=== PATIENT | male | born 1990 | race Hispanic/Latino ===

== ENCOUNTER 2023-01-26 02:10 | Emergency (ER) | payer OTHER ==
[~2023-01-26] VITALS: Ht 175.3 cm; Wt 90.7 kg
[2023-01-26 02:12] VITALS: BP 138/82
[2023-01-26] MEDS ORDERED: FAMO-136 PO (09:56)
== END 2023-01-26 04:50 | disposition left against medical advice (07) ==
LOC: EDH 02:10
DX: R10.13 Epigastric pain (principal); Z53.21 Procedure and treatment not carried out due to patient leaving prior to being seen by health care provider
CPT/HCPCS: 99281

== ENCOUNTER 2023-01-26 05:24 | Emergency (ER) | payer OTHER ==
[~2023-01-26] VITALS: Ht 175.3 cm; Wt 90.7 kg
[2023-01-26] MEDS ORDERED: MAG/ALUM/SIMETH 30 ML UDCUP ONE (06:14)
[2023-01-26] MEDS ORDERED: DICYCLOMINE HCL 10 MG/5 ML ML PO ONE (06:15)
[2023-01-26] MEDS ORDERED: DICYCLOMINE HCL 10 MG/5 ML ML PO SCH (06:30)
[2023-01-26] MEDS ORDERED: MAG/ALUM/SIMETH 30 ML UDCUP PO ONE (06:30)
[2023-01-26] MEDS ORDERED: LIDOCAINE HCL 2% VISCOUS 15 ML UDCUP PO ONE (06:30)
[2023-01-26 07:02] LABS: BASOPHILS % (AUTO) 0.1 % (0.0-5.0); HEMATOCRIT 43.9 % (42-54); LYMPHOCYTES % (AUTO) 4.6 % (21.0-51.0); MEAN CORPUSCULAR HGB CONC 35.8 g/dL (32.0-36.0); MEAN CORPUSCULAR VOLUME 83.9 fL (79-99); MONOCYTES % (AUTO) 4.2 % (3.0-13.0); NEUTROPHILS % (AUTO) 90.8 % (40.0-77.0); PLATELET COUNT (AUTO) 228 K/uL (130-400); RED BLOOD CELL COUNT(AUTO) 5.23 MIL/uL (4.50-6.20); RED CELL DISTRIBUTION WIDTH 12.4 % (11.0-15.5); WHITE BLOOD COUNT (AUTO) 17.6 K/uL (4.8-10.8)
[2023-01-26 08:04] LABS: ALBUMIN 4.2 g/dL (3.5-5.0); POTASSIUM 4.1 mmol/L (3.5-5.1); TOTAL PROTEIN, SERUM 7.7 g/dL (6.0-8.3)
[2023-01-26 08:06] LABS: APPEARANCE,URINE CLEAR (CLEAR); BILIRUBIN,URINE NEGATIVE (NEGATIVE); COLOR,URINE YELLOW (YELLOW); GLUCOSE, URINE (UA) NEGATIVE (NEGATIVE); KETONES,URINE 20 mg/dL (NEGATIVE); LEUKOCYTE ESTERASE ,URINE NEGATIVE Leu/uL (NEGATIVE); NITRATE,URINE NEGATIVE (NEGATIVE); OCCULT BLOOD,URINE NEGATIVE (NEGATIVE); PH,URINE 7.5 (5.0-8.0); PROTEIN,URINE 20 mg/dL (NEGATIVE)
[2023-01-26 08:20] LABS: MUCUS,URINE FEW LPF (None Seen)
[2023-01-26 08:58] LABS: AMPHET/METH SCREEN,URINE NEGATIVE (NEGATIVE); BARBITURATE SCREEN, URINE NEGATIVE (NEGATIVE); BENZODIAZEPINES SCREEN,URINE NEGATIVE (NEGATIVE); CANNABINOID SCREEN,URINE NEGATIVE (NEGATIVE); COCAINE SCREEN,URINE NEGATIVE (NEGATIVE); OPIATE SCREEN,URINE NEGATIVE (NEGATIVE); PHENCYCLIDINE SCREEN,URINE NEGATIVE (NEGATIVE)
[2023-01-26 09:44] VITALS: BP 131/81
[2023-01-26] MEDS ORDERED: FAMO-136 PO (09:56)
[2023-01-26] MEDS ORDERED: MORPHINE 2 MG SYG IVP ONE (10:00)
[2023-01-26] MEDS ORDERED: ONDANSETRON 4MG INJ IVP ONE (10:00)
[2023-01-26] MEDS ORDERED: KETOROLAC 30MG VIAL (30MG/ML) ONE (10:24)
[2023-01-26] MEDS ORDERED: KETOROLAC 30MG VIAL (30MG/ML) IVP ONE (10:30)
== END 2023-01-26 11:08 | disposition home or self-care (01) ==
LOC: EDH 05:24
DX: R10.13 Epigastric pain (principal)
CPT/HCPCS: 99285; 96374; 76705; 96375; 80053; 80305; 83690; 85025; 36415; 81001; J2405; J1885

== ENCOUNTER 2023-01-27 18:18 | Inpatient (IN) | payer OTHER ==
[~2023-01-27] VITALS: Ht 175.3 cm; Wt 90.5 kg
[~2023-01-27 18:18] MED LIST: FAMO-136 PO
[2023-01-27] MEDS ORDERED: DICYCLOMINE 20MG (10MG/ML) AMP IM STA (19:25)
[2023-01-27] MEDS ORDERED: KETOROLAC 60 MG VIAL (30MG/ML) IM ONE (19:30)
[2023-01-27] MEDS ORDERED: ONDANSETRON 4MG TABLET PO ONE (19:30)
[2023-01-27 20:01] LABS: BASOPHILS % (AUTO) 0.2 % (0.0-5.0); EOSINOPHILS % (AUTO) 0.6 % (0.0-8.0); HEMATOCRIT 45.6 % (42-54); LYMPHOCYTES % (AUTO) 11.5 % (21.0-51.0); MEAN CORPUSCULAR HEMOGLOBIN 30.2 pg (27.0-33.0); MEAN CORPUSCULAR HGB CONC 35.1 g/dL (32.0-36.0); MONOCYTES % (AUTO) 12.3 % (3.0-13.0); PLATELET COUNT (AUTO) 205 K/uL (130-400); RED CELL DISTRIBUTION WIDTH 12.3 % (11.0-15.5); WHITE BLOOD COUNT (AUTO) 13.8 K/uL (4.8-10.8)
[2023-01-27] MEDS: PANTOPRAZOLE 40 MG TAB DR PO SCH (20:02)
[2023-01-27 20:11] LABS: CREATININE 1.1 mg/dL (0.5-1.5)
[2023-01-27 20:16] LABS: ALBUMIN 3.8 g/dL (3.5-5.0); TOTAL PROTEIN, SERUM 7.9 g/dL (6.0-8.3)
[2023-01-27] MEDS ORDERED: ZOSYN 3.375GM +NS 50ML IVPB ONE (22:30)
[2023-01-27] MEDS ORDERED: 0.9%NACL 1000ML 1,000 ML IV ONE (22:30)
[2023-01-27] MEDS ORDERED: ACETAMINOPHEN 325 MG TAB PO PRN ×2 (23:00)
[2023-01-27] MEDS ORDERED: MORPHINE 2 MG SYG IV PRN (23:00)
[2023-01-27] MEDS ORDERED: ONDANSETRON 4MG INJ IV PRN (23:00)
[2023-01-27] MEDS ORDERED: MORPHINE 4 MG SYG IV PRN (23:00)
[2023-01-28] MEDS: LACTATED RINGERS 1000ML 1,000 ML IV SCH ×2 (00:30→11:20)
[2023-01-28 02:05] VITALS: BP 131/89
[2023-01-28 05:11] LABS: BASOPHILS % (AUTO) 0.3 % (0.0-5.0); EOSINOPHILS % (AUTO) 0.7 % (0.0-8.0); HEMATOCRIT 41.8 % (42-54); LYMPHOCYTES % (AUTO) 13.5 % (21.0-51.0); MEAN CORPUSCULAR HEMOGLOBIN 31.4 pg (27.0-33.0); MEAN CORPUSCULAR HGB CONC 36.6 g/dL (32.0-36.0); MEAN CORPUSCULAR VOLUME 85.7 fL (79-99); MONOCYTES % (AUTO) 10.4 % (3.0-13.0); NEUTROPHILS % (AUTO) 74.7 % (40.0-77.0); PLATELET COUNT (AUTO) 206 K/uL (130-400); RED BLOOD CELL COUNT(AUTO) 4.88 MIL/uL (4.50-6.20); RED CELL DISTRIBUTION WIDTH 12.3 % (11.0-15.5); WHITE BLOOD COUNT (AUTO) 11.8 K/uL (4.8-10.8)
[2023-01-28 05:13] LABS: MAGNESIUM 1.9 mg/dL (1.80-2.40); PHOSPHORUS 2.9 mg/dL (2.5-4.9); POTASSIUM 3.9 mmol/L (3.5-5.1)
[2023-01-28 05:14] LABS: PROTHROMBIN TIME 10.9 SEC (9.6-11.6)
[2023-01-28 05:15] LABS: PARTIAL THROMBOPLASTIN TIME 29.1 SEC (26.3-35.5)
[2023-01-28 08:00] VITALS: BP 114/70
[2023-01-28] MEDS: FAMOTIDINE 20MG VIAL IV SCH ×2 (08:34→20:13)
[2023-01-28] MEDS: ENOXAPARIN SODIUM 40 MG/0.4 ML SYRINGE SQ SCH (08:38)
[2023-01-28] MEDS ORDERED: 0.9%NACL 50ML IV SCH (11:00)
[2023-01-28] MEDS: ZOSYN 3.375GM +NS 50ML IVPB SCH ×2 (11:15→19:00)
[2023-01-28] MEDS ORDERED: GADOTERATE MEGLUMINE 10 MMOL/20 ML VIAL IV ONE (11:23)
[2023-01-28 12:00] VITALS: BP 118/70
[2023-01-28 16:00] VITALS: BP 112/61
[2023-01-28 19:00] VITALS: BP_SYST 111; BP_SYST 162; BP_DIAS 66; BP_DIAS 68
[2023-01-28] MEDS: PANTOPRAZOLE 40 MG TAB DR PO SCH (19:30)
[2023-01-29 00:11] VITALS: BP 104/63
[2023-01-29] MEDS: LACTATED RINGERS 1000ML 1,000 ML IV SCH (01:45)
[2023-01-29] MEDS: ZOSYN 3.375GM +NS 50ML IVPB SCH ×2 (02:17→09:57)
[2023-01-29 03:00] VITALS: BP 107/62
[2023-01-29 06:02] LABS: BASOPHILS % (AUTO) 0.3 % (0.0-5.0); HEMATOCRIT 43.3 % (42-54); LYMPHOCYTES % (AUTO) 12.4 % (21.0-51.0); MEAN CORPUSCULAR HEMOGLOBIN 29.9 pg (27.0-33.0); MEAN CORPUSCULAR HGB CONC 34.4 g/dL (32.0-36.0); MEAN CORPUSCULAR VOLUME 86.9 fL (79-99); MONOCYTES % (AUTO) 8.7 % (3.0-13.0); NEUTROPHILS % (AUTO) 77.1 % (40.0-77.0); PLATELET COUNT (AUTO) 240 K/uL (130-400); RED BLOOD CELL COUNT(AUTO) 4.98 MIL/uL (4.50-6.20); RED CELL DISTRIBUTION WIDTH 12.2 % (11.0-15.5); WHITE BLOOD COUNT (AUTO) 11.9 K/uL (4.8-10.8)
[2023-01-29 06:22] LABS: ALBUMIN 3.5 g/dL (3.5-5.0); CREATININE 1.1 mg/dL (0.5-1.5); TOTAL PROTEIN, SERUM 7.4 g/dL (6.0-8.3)
[2023-01-29] MEDS: PANTOPRAZOLE 40 MG TAB DR PO SCH (07:34)
[2023-01-29 08:00] VITALS: BP 117/68
[2023-01-29] MEDS: FAMOTIDINE 20MG VIAL IV SCH (08:22)
[2023-01-29] MEDS: ENOXAPARIN SODIUM 40 MG/0.4 ML SYRINGE SQ SCH (09:00)
[2023-01-29 11:40] VITALS: BP 124/81
[2023-01-29 16:00] VITALS: BP 120/74
== END 2023-01-29 18:44 | disposition home or self-care (01) | DRG 446 ==
LOC: EDH 18:18 → EDHIP 22:42 → 3AH 01-28 02:00
PROVIDERS: ADMIT Internal Medicine; ATTEND Internal Medicine
DX: K80.00 Calculus of gallbladder with acute cholecystitis without obstruction (principal); Z90.49 Acquired absence of other specified parts of digestive tract
CPT/HCPCS: 36415; 74176; 74181; 80048; 80053; 83690; 83735; 84100; 85025; 85610; 85730; 86850; 86900; 86901; 93005; G0378; J0500; J1650; J1885; J2405; J2543; J3490; J7120

== ENCOUNTER 2023-08-07 21:55 | Emergency (ER) | payer OTHER ==
[~2023-08-07] VITALS: Ht 175.3 cm; Wt 74.8 kg
[2023-08-07 22:46] VITALS: BP 124/78; PULSE 74; RESP 20; O2SAT 100
[2023-08-08] MEDS ORDERED: AMOX1TAB16 PO (00:24)
[2023-08-08] MEDS ORDERED: MUPI22OI2 TP (00:24)
[2023-08-08] MEDS ORDERED: DIPH,PERTUSS(ACELL),TET VAC/PF 0.5 ML VIAL IM ONE (00:30)
== END 2023-08-08 00:42 | disposition home or self-care (01) ==
LOC: EDH 21:55
DX: S60.429A Blister (nonthermal) of unspecified finger, initial encounter (principal); S62.631A Displaced fracture of distal phalanx of left index finger, initial encounter for closed fracture; X58.XXXA Exposure to other specified factors, initial encounter; Y93.89 Activity, other specified; Y92.89 Other specified places as the place of occurrence of the external cause; Y99.8 Other external cause status
CPT/HCPCS: 73130; 90471; 90715

== ENCOUNTER 2023-08-24 06:07 | Emergency (ER) | payer OTHER ==
[~2023-08-24] VITALS: Ht 175.3 cm; Wt 67.1 kg
[~2023-08-24 06:07] MED LIST changes: +AMOX1TAB16 PO; +MUPI22OI2 TP
[2023-08-24 06:39] LABS: APPEARANCE,URINE CLEAR (CLEAR); BILIRUBIN,URINE NEGATIVE (NEGATIVE); COLOR,URINE LIGHT-YELLOW (YELLOW); GLUCOSE, URINE (UA) NEGATIVE (NEGATIVE); KETONES,URINE NEGATIVE (NEGATIVE); LEUKOCYTE ESTERASE ,URINE 75 Leu/uL (NEGATIVE); NITRATE,URINE NEGATIVE (NEGATIVE); OCCULT BLOOD,URINE NEGATIVE (NEGATIVE); PROTEIN,URINE NEGATIVE (NEGATIVE); UROBILINOGEN,URINE 0.2 mg/dL (0.2-1.0)
[2023-08-24] MEDS ORDERED: CEFTRIAXONE 500MG VIAL IM STA (06:42)
[2023-08-24] MEDS ORDERED: CEFU500T67 PO (06:56)
[2023-08-24] MEDS ORDERED: IBUP-1493 PO (06:56)
[2023-08-24] MEDS ORDERED: CYCL-309 PO (06:56)
[2023-08-24 06:59] LABS: ADD UA MICROSCOPIC YES
[2023-08-24] MEDS ORDERED: AZITHROMYCIN 250 MG TABLET PO ONE (07:00)
[2023-08-24 07:05] LABS: RBC,URINE 0-1 /HPF (0-1)
[2023-08-24] MEDS ORDERED: KETOROLAC 60 MG VIAL (30MG/ML) IM ONE ×2 (07:07→07:30)
[2023-08-24 07:20] VITALS: BP 126/72; PULSE 73; RESP 18; O2SAT 98
== END 2023-08-24 07:22 | disposition home or self-care (01) ==
LOC: EDH 06:07
DX: N39.0 Urinary tract infection, site not specified (principal); M54.9 Dorsalgia, unspecified; Z79.899 Other long term (current) drug therapy; Z90.49 Acquired absence of other specified parts of digestive tract
CPT/HCPCS: 99284; 87088; 87797; 87486; 81001; 96372 ×2; J1885; J0696

== ENCOUNTER 2023-08-31 03:16 | Emergency (ER) | payer OTHER ==
[~2023-08-31] VITALS: Ht 175.3 cm; Wt 74.4 kg
[~2023-08-31 03:16] MED LIST changes: +CEFU500T67 PO; +CYCL-309 PO; +IBUP-1493 PO
[2023-08-31 03:40] LABS: BASOPHILS # (AUTO) 0.02 K/uL (0.00-0.20); BASOPHILS % (AUTO) 0.2 % (0.0-5.0); EOSINOPHILS # (AUTO) 0.03 K/uL (0.00-0.70); EOSINOPHILS % (AUTO) 0.3 % (0.0-8.0); HEMATOCRIT 42.9 % (42-54); IMMATURE GRANULOCYTE ABSOLUTE 0.03 K/uL (0-1); LYMPHOCYTES % (AUTO) 19.7 % (21.0-51.0); MEAN CORPUSCULAR HEMOGLOBIN 30.3 pg (27.0-33.0); MEAN CORPUSCULAR HGB CONC 35.9 g/dL (32.0-36.0); MEAN CORPUSCULAR VOLUME 84.4 fL (79-99); MONOCYTES # (AUTO) 0.5 K/uL (0.1-1.0); MONOCYTES % (AUTO) 4.6 % (3.0-13.0); NEUTROPHILS # (AUTO) 7.4 K/uL (1.8-7.7); NEUTROPHILS % (AUTO) 74.9 % (40.0-77.0); PLATELET COUNT (AUTO) 242 K/uL (130-400); RED BLOOD CELL COUNT(AUTO) 5.08 MIL/uL (4.50-6.20); RED CELL DISTRIBUTION WIDTH 12.3 % (11.0-15.5); WHITE BLOOD COUNT (AUTO) 9.9 K/uL (4.8-10.8)
[2023-08-31] MEDS ORDERED: DICYCLOMINE 20MG (10MG/ML) AMP IM STA (03:46)
[2023-08-31 03:50] LABS: POTASSIUM 3.6 mmol/L (3.5-5.1)
[2023-08-31] MEDS ORDERED: DICYCLOMINE 20MG (10MG/ML) AMP IM ONE (03:51)
[2023-08-31] MEDS ORDERED: KETOROLAC 30MG VIAL (30MG/ML) ONE (03:51)
[2023-08-31 03:54] LABS: ALBUMIN 4.1 g/dL (3.5-5.0); BILIRUBIN,TOTAL 1.3 mg/dL (0.2-1.0)
[2023-08-31] MEDS ORDERED: KETOROLAC 30MG VIAL (30MG/ML) IVP ONE (04:00)
[2023-08-31 04:14] LABS: APPEARANCE,URINE CLEAR (CLEAR); BILIRUBIN,URINE NEGATIVE (NEGATIVE); COLOR,URINE LIGHT-YELLOW (YELLOW); GLUCOSE, URINE (UA) NEGATIVE (NEGATIVE); KETONES,URINE NEGATIVE (NEGATIVE); LEUKOCYTE ESTERASE ,URINE NEGATIVE Leu/uL (NEGATIVE); NITRATE,URINE NEGATIVE (NEGATIVE); OCCULT BLOOD,URINE NEGATIVE (NEGATIVE); PH,URINE 6.5 (5.0-8.0); PROTEIN,URINE NEGATIVE (NEGATIVE); UROBILINOGEN,URINE 0.2 mg/dL (0.2-1.0)
[2023-08-31] MEDS ORDERED: IBUP-1493 PO (04:23)
[2023-08-31] MEDS ORDERED: LEVO-70 PO (04:23)
[2023-08-31] MEDS ORDERED: ONDA-104 PO (04:23)
[2023-08-31 04:26] LABS: ADD UA MICROSCOPIC NO
[2023-08-31 05:09] VITALS: BP 108/73; PULSE 52; RESP 18; O2SAT 100
[2023-08-31] MEDS ORDERED: FAMO20TA8 PO (12:00)
[2023-08-31] MEDS ORDERED: ONDA4TAB10 PO (12:00)
[2023-08-31] MEDS ORDERED: HYDR-4060 PO (12:00)
== END 2023-08-31 05:11 | disposition home or self-care (01) ==
LOC: EDH 03:16
DX: K80.20 Calculus of gallbladder without cholecystitis without obstruction (principal); Z79.899 Other long term (current) drug therapy; Z98.890 Other specified postprocedural states
CPT/HCPCS: 99285; 96374; 76705; 80053; 83690; 85025; 81003; 36415; 96372; J1885; J0500

== ENCOUNTER 2023-08-31 08:09 | Emergency (ER) | payer OTHER ==
[~2023-08-31] VITALS: Ht 175.3 cm; Wt 74.8 kg
[~2023-08-31 08:09] MED LIST changes: +LEVO-70 PO; +ONDA-104 PO
[2023-08-31] MEDS ORDERED: IOHEXOL-350 75 ML VIAL IV ONE (09:28)
[2023-08-31] MEDS ORDERED: ONDANSETRON 4MG INJ IVP ONE (09:30)
[2023-08-31] MEDS ORDERED: FAMOTIDINE 20MG VIAL IV ONE (09:30)
[2023-08-31] MEDS ORDERED: LACTATED RINGERS 1000ML 1,000 ML IV ONE (09:30)
[2023-08-31] MEDS ORDERED: HYDROMORPHONE 1 MG INJ IVP ONE (09:30)
[2023-08-31] MEDS ORDERED: KETOROLAC 30MG VIAL (30MG/ML) IVP ONE (12:00)
[2023-08-31] MEDS ORDERED: FAMO20TA8 PO (12:00)
[2023-08-31] MEDS ORDERED: HYDR-4060 PO (12:00)
[2023-08-31] MEDS ORDERED: ONDA4TAB10 PO (12:00)
[2023-08-31 12:38] VITALS: BP 133/78; PULSE 78; RESP 18; O2SAT 98
[2023-08-31 12:41] LABS: AMPHET/METH SCREEN,URINE NEGATIVE (NEGATIVE); BARBITURATE SCREEN, URINE NEGATIVE (NEGATIVE); BENZODIAZEPINES SCREEN,URINE NEGATIVE (NEGATIVE); CANNABINOID SCREEN,URINE NEGATIVE (NEGATIVE); COCAINE SCREEN,URINE NEGATIVE (NEGATIVE); OPIATE SCREEN,URINE NEGATIVE (NEGATIVE); PHENCYCLIDINE SCREEN,URINE NEGATIVE (NEGATIVE)
== END 2023-08-31 12:40 | disposition home or self-care (01) ==
LOC: EDH 08:09
DX: K80.70 Calculus of gallbladder and bile duct without cholecystitis without obstruction (principal); K80.50 Calculus of bile duct without cholangitis or cholecystitis without obstruction; Z79.899 Other long term (current) drug therapy; Z90.49 Acquired absence of other specified parts of digestive tract
CPT/HCPCS: 99285; 74176; 96374; 96375; 80305; J3490; J1170; J2405; J1885; Q9967

== ENCOUNTER 2024-05-08 04:38 | Inpatient (IN) | payer SELFPAY ==
[~2024-05-08] VITALS: Ht 175.3 cm; Wt 71.3 kg
[~2024-05-08 04:38] MED LIST changes: -AMOX1TAB16 PO; -CEFU500T67 PO; -CYCL-309 PO; -FAMO-136 PO; +FAMO20TA8 PO; +HYDR-4060 PO; +ONDA-243 PO
[2024-05-08 07:23] LABS: BASOPHILS # (AUTO) 0.03 K/uL (0.00-0.20); BASOPHILS % (AUTO) 0.3 % (0.0-5.0); EOSINOPHILS # (AUTO) 0.05 K/uL (0.00-0.70); EOSINOPHILS % (AUTO) 0.5 % (0.0-8.0); HEMATOCRIT 47.1 % (42-54); IMMATURE GRANULOCYTE ABSOLUTE 0.03 K/uL (0-1); LYMPHOCYTES # (AUTO) 1.5 K/uL (1.0-4.8); LYMPHOCYTES % (AUTO) 15.3 % (21.0-51.0); MEAN CORPUSCULAR HEMOGLOBIN 31.5 pg (27.0-33.0); MEAN CORPUSCULAR HGB CONC 35.7 g/dL (32.0-36.0); MEAN CORPUSCULAR VOLUME 88.4 fL (79-99); MONOCYTES # (AUTO) 0.7 K/uL (0.1-1.0); MONOCYTES % (AUTO) 7.6 % (3.0-13.0); NEUTROPHILS # (AUTO) 7.4 K/uL (1.8-7.7); PLATELET COUNT (AUTO) 217 K/uL (130-400); RED BLOOD CELL COUNT(AUTO) 5.33 MIL/uL (4.50-6.20); RED CELL DISTRIBUTION WIDTH 12.3 % (11.0-15.5); WHITE BLOOD COUNT (AUTO) 9.7 K/uL (4.8-10.8)
[2024-05-08 07:27] LABS: CREATININE 0.9 mg/dL (0.5-1.3); POTASSIUM 3.9 mmol/L (3.5-5.1)
[2024-05-08 07:31] LABS: ALBUMIN 4.3 g/dL (3.5-5.0); BILIRUBIN,TOTAL 2.5 mg/dL (0.2-1.0); TOTAL PROTEIN, SERUM 7.8 g/dL (6.0-8.3)
[2024-05-08] MEDS: FAMOTIDINE 20MG VIAL IV ONE (07:43)
[2024-05-08] MEDS: ONDANSETRON 4MG INJ IVP ONE (07:44)
[2024-05-08] MEDS: KETOROLAC 15MG/ML VIAL (15MG/ML) IV ONE (07:44)
[2024-05-08] MEDS: 0.9%NACL 1000ML 1,000 ML IV ONE (07:44)
[2024-05-08] MEDS: MORPHINE 2 MG SYG IVP ONE (07:44)
[2024-05-08 08:47] LABS: APPEARANCE,URINE CLOUDY (CLEAR); BILIRUBIN,URINE NEGATIVE (NEGATIVE); COLOR,URINE YELLOW (YELLOW); GLUCOSE, URINE (UA) NEGATIVE (NEGATIVE); KETONES,URINE NEGATIVE (NEGATIVE); LEUKOCYTE ESTERASE ,URINE NEGATIVE Leu/uL (NEGATIVE); NITRATE,URINE NEGATIVE (NEGATIVE); OCCULT BLOOD,URINE NEGATIVE (NEGATIVE); PH,URINE 7.5 (5.0-8.0); PROTEIN,URINE NEGATIVE (NEGATIVE); UROBILINOGEN,URINE 6 mg/dL (0.2-1.0)
[2024-05-08 08:53] LABS: ADD UA MICROSCOPIC YES
[2024-05-08 08:55] LABS: MUCUS,URINE RARE LPF (None Seen); WBC,URINE 0-1 /HPF (0-1)
[2024-05-08] MEDS: CEFTRIAXONE 1G VIAL IVPB ONE (11:12)
[2024-05-08 12:14] LABS: APPEARANCE,URINE CLEAR (CLEAR); BILIRUBIN,URINE NEGATIVE (NEGATIVE); COLOR,URINE LIGHT-YELLOW (YELLOW); GLUCOSE, URINE (UA) NEGATIVE (NEGATIVE); KETONES,URINE NEGATIVE (NEGATIVE); LEUKOCYTE ESTERASE ,URINE NEGATIVE Leu/uL (NEGATIVE); NITRATE,URINE NEGATIVE (NEGATIVE); OCCULT BLOOD,URINE NEGATIVE (NEGATIVE); PROTEIN,URINE NEGATIVE (NEGATIVE); UROBILINOGEN,URINE 0.2 mg/dL (0.2-1.0)
[2024-05-08 12:22] LABS: ADD UA MICROSCOPIC NO; HEMOGLOBIN A1C 4.4 % (4.0-6.0)
[2024-05-08 12:23] LABS: AMPHET/METH SCREEN,URINE NEGATIVE (NEGATIVE); BARBITURATE SCREEN, URINE NEGATIVE (NEGATIVE); BENZODIAZEPINES SCREEN,URINE NEGATIVE (NEGATIVE); CANNABINOID SCREEN,URINE NEGATIVE (NEGATIVE); COCAINE SCREEN,URINE NEGATIVE (NEGATIVE); OPIATE SCREEN,URINE NEGATIVE (NEGATIVE); PHENCYCLIDINE SCREEN,URINE NEGATIVE (NEGATIVE)
[2024-05-08] MEDS: 0.9%NACL 1000ML 1,000 ML IV SCH (12:35)
[2024-05-08 12:37] LABS: THYROID STIMULATING HORMONE 1.03 uIU/mL (0.36-3.74)
[2024-05-08] MEDS: FAMOTIDINE 20MG VIAL IV SCH (20:59)
[2024-05-08 23:37] LABS: HEPATITIS A IGM ANTIBODY Non-Reactive (Nonreactive); HEPATITIS B CORE IGM ANTIBODY Non-Reactive (Negative); HEPATITIS B SURFACE ANTIGEN Non-Reactive (Nonreactive); HEPATITIS C ANTIBODY Non-Reactive (Nonreactive)
[2024-05-09] VITALS (9 sets, daily range): BP systolic 99–131; BP diastolic 60–76; PULSE 47–67; RESP 18–21; O2SAT 100
[2024-05-09 07:10] LABS: BASOPHILS # (AUTO) 0.01 K/uL (0.00-0.20); BASOPHILS % (AUTO) 0.2 % (0.0-5.0); EOSINOPHILS # (AUTO) 0.14 K/uL (0.00-0.70); EOSINOPHILS % (AUTO) 3.3 % (0.0-8.0); HEMATOCRIT 39.7 % (42-54); IMMATURE GRANULOCYTE ABSOLUTE 0.02 K/uL (0-1); LYMPHOCYTES # (AUTO) 1.2 K/uL (1.0-4.8); LYMPHOCYTES % (AUTO) 28.9 % (21.0-51.0); MEAN CORPUSCULAR HEMOGLOBIN 31.4 pg (27.0-33.0); MEAN CORPUSCULAR VOLUME 87.1 fL (79-99); MONOCYTES # (AUTO) 0.5 K/uL (0.1-1.0); MONOCYTES % (AUTO) 11.4 % (3.0-13.0); NEUTROPHILS # (AUTO) 2.4 K/uL (1.8-7.7); NEUTROPHILS % (AUTO) 55.7 % (40.0-77.0); PLATELET COUNT (AUTO) 166 K/uL (130-400); RED BLOOD CELL COUNT(AUTO) 4.56 MIL/uL (4.50-6.20); RED CELL DISTRIBUTION WIDTH 12.4 % (11.0-15.5); WHITE BLOOD COUNT (AUTO) 4.3 K/uL (4.8-10.8)
[2024-05-09 07:29] LABS: ALBUMIN 3.1 g/dL (3.5-5.0); BILIRUBIN,TOTAL 4.6 mg/dL (0.2-1.0); CREATININE 0.8 mg/dL (0.5-1.3); POTASSIUM 4.3 mmol/L (3.5-5.1); TOTAL PROTEIN, SERUM 5.9 g/dL (6.0-8.3)
[2024-05-09] MEDS: CEFTRIAXONE 1G VIAL IVPB SCH (08:45)
[2024-05-09] MEDS: BISACODYL 10 MG SUPP.RECT RC SCH (21:29)
[2024-05-10 04:00] VITALS: BP 104/61; PULSE 52; RESP 18
[2024-05-10 08:00] VITALS: BP 129/78; PULSE 53; RESP 18
[2024-05-10 08:45] VITALS: O2SAT 100
[2024-05-10 09:22] LABS: BASOPHILS # (AUTO) 0.02 K/uL (0.00-0.20); BASOPHILS % (AUTO) 0.5 % (0.0-5.0); EOSINOPHILS # (AUTO) 0.09 K/uL (0.00-0.70); EOSINOPHILS % (AUTO) 2.4 % (0.0-8.0); IMMATURE GRANULOCYTE ABSOLUTE 0.01 K/uL (0-1); LYMPHOCYTES % (AUTO) 27.1 % (21.0-51.0); MEAN CORPUSCULAR HEMOGLOBIN 31.3 pg (27.0-33.0); MEAN CORPUSCULAR HGB CONC 35.7 g/dL (32.0-36.0); MEAN CORPUSCULAR VOLUME 87.7 fL (79-99); MONOCYTES # (AUTO) 0.4 K/uL (0.1-1.0); MONOCYTES % (AUTO) 10.5 % (3.0-13.0); NEUTROPHILS # (AUTO) 2.3 K/uL (1.8-7.7); NEUTROPHILS % (AUTO) 59.2 % (40.0-77.0); PLATELET COUNT (AUTO) 184 K/uL (130-400); RED BLOOD CELL COUNT(AUTO) 4.79 MIL/uL (4.50-6.20); RED CELL DISTRIBUTION WIDTH 12.3 % (11.0-15.5); WHITE BLOOD COUNT (AUTO) 3.8 K/uL (4.8-10.8)
[2024-05-10 09:36] LABS: CREATININE 0.8 mg/dL (0.5-1.3); POTASSIUM 4.3 mmol/L (3.5-5.1)
[2024-05-10 09:45] LABS: ALBUMIN 3.6 g/dL (3.5-5.0); BILIRUBIN,TOTAL 4.9 mg/dL (0.2-1.0); TOTAL PROTEIN, SERUM 6.8 g/dL (6.0-8.3)
[2024-05-10 12:00] VITALS: BP 119/72; PULSE 58; RESP 18
[2024-05-10 16:00] VITALS: BP 116/61; PULSE 55; RESP 18
[2024-05-10 20:00] VITALS: BP 112/73; PULSE 60; RESP 20; O2SAT 98
[2024-05-11] VITALS (27 sets, daily range): BP systolic 106–137; BP diastolic 56–85; PULSE 47–92; RESP 10–20; O2SAT 99
[2024-05-11 10:40] LABS: BASOPHILS # (AUTO) 0.02 K/uL (0.00-0.20); BASOPHILS % (AUTO) 0.5 % (0.0-5.0); EOSINOPHILS # (AUTO) 0.04 K/uL (0.00-0.70); EOSINOPHILS % (AUTO) 0.9 % (0.0-8.0); HEMATOCRIT 42.7 % (42-54); IMMATURE GRANULOCYTE ABSOLUTE 0.01 K/uL (0-1); LYMPHOCYTES % (AUTO) 22.3 % (21.0-51.0); MEAN CORPUSCULAR HEMOGLOBIN 31.2 pg (27.0-33.0); MEAN CORPUSCULAR HGB CONC 35.1 g/dL (32.0-36.0); MEAN CORPUSCULAR VOLUME 88.8 fL (79-99); MONOCYTES # (AUTO) 0.4 K/uL (0.1-1.0); MONOCYTES % (AUTO) 8.7 % (3.0-13.0); NEUTROPHILS # (AUTO) 2.9 K/uL (1.8-7.7); NEUTROPHILS % (AUTO) 67.4 % (40.0-77.0); PLATELET COUNT (AUTO) 189 K/uL (130-400); RED BLOOD CELL COUNT(AUTO) 4.81 MIL/uL (4.50-6.20); RED CELL DISTRIBUTION WIDTH 12.3 % (11.0-15.5); WHITE BLOOD COUNT (AUTO) 4.4 K/uL (4.8-10.8)
[2024-05-11 12:12] LABS: CREATININE 0.9 mg/dL (0.5-1.3); POTASSIUM 3.9 mmol/L (3.5-5.1)
[2024-05-11 12:22] LABS: ALBUMIN 3.7 g/dL (3.5-5.0); BILIRUBIN,TOTAL 1.9 mg/dL (0.2-1.0)
[2024-05-11] MEDS ORDERED: LIDOCAINE PF 100MG/5ML (2%) SYRINGE 5ML ONE (13:51)
[2024-05-11] MEDS ORDERED: DEXAMETHASONE SOD PHOSPHATE 4 MG/ML 1ML VIAL ONE (13:51)
[2024-05-11] MEDS ORDERED: ROPIVACAINE 0.5% 5MG/ML 30ML ONE ×2 (13:51→15:16)
[2024-05-11] MEDS ORDERED: ROCURONIUM BROMIDE 10MG/1ML 5ML VL ONE ×2 (13:52→14:44)
[2024-05-11] MEDS ORDERED: MIDAZOLAM HCL 1 MG/ML 2ML VIAL ONE (13:52)
[2024-05-11] MEDS ORDERED: PROPOFOL 10 MG/ML 20ML VIAL IV ONE (13:52)
[2024-05-11] MEDS ORDERED: SUCCINYLCHOLINE CHLORIDE 20 MG/ML 10 ML VIAL ONE (13:52)
[2024-05-11] MEDS ORDERED: FENTANYL CITRATE PF 50 MCG/1 ML 2ML VIAL ONE ×3 (13:52→15:42)
[2024-05-11] MEDS ORDERED: ONDANSETRON 4MG INJ ONE (13:52)
[2024-05-11] MEDS: INDOCYANINE GREEN 25 MG VIAL IJ ONE (14:14)
[2024-05-11] MEDS ORDERED: GLYCOPYRROLATE 0.2 MG/ML 5 ML VIAL ONE (14:29)
[2024-05-11] MEDS ORDERED: NEOSTIGMINE METHYLSULFATE 1MG/ML IV ONE (14:29)
[2024-05-11] MEDS: BUPIVACAINE/PF 0.25% 10ML VIAL IJ ONE (15:30)
[2024-05-11] MEDS: BUPIVACAINE/PF 0.25% 30ML VIAL IJ ONE (15:30)
[2024-05-11] MEDS: MEPERIDINE-PF 25 MG/ML SYG ONE ×2 (16:28→16:36)
[2024-05-11] MEDS: ACETAMINOPHEN 1,000 MG/100 ML VIAL IV ONE (16:29)
[2024-05-11] MEDS: ONDANSETRON 4MG INJ ONE (16:29)
[2024-05-11] MEDS: KETOROLAC 15MG/ML VIAL (15MG/ML) IV PRN (18:37)
[2024-05-11] MEDS: MORPHINE 2 MG SYG IVP PRN (21:36)
[2024-05-12] VITALS (8 sets, daily range): BP systolic 116–126; BP diastolic 64–82; PULSE 55–82; RESP 17–18; O2SAT 100
[2024-05-12 04:49] LABS: BASOPHILS # (AUTO) 0.02 K/uL (0.00-0.20); BASOPHILS % (AUTO) 0.2 % (0.0-5.0); HEMATOCRIT 39.1 % (42-54); IMMATURE GRANULOCYTE ABSOLUTE 0.02 K/uL (0-1); LYMPHOCYTES # (AUTO) 1.1 K/uL (1.0-4.8); LYMPHOCYTES % (AUTO) 11.5 % (21.0-51.0); MEAN CORPUSCULAR HEMOGLOBIN 31.2 pg (27.0-33.0); MEAN CORPUSCULAR HGB CONC 35.5 g/dL (32.0-36.0); MEAN CORPUSCULAR VOLUME 87.7 fL (79-99); MONOCYTES % (AUTO) 11.1 % (3.0-13.0); NEUTROPHILS # (AUTO) 7.2 K/uL (1.8-7.7); PLATELET COUNT (AUTO) 197 K/uL (130-400); RED BLOOD CELL COUNT(AUTO) 4.46 MIL/uL (4.50-6.20); RED CELL DISTRIBUTION WIDTH 11.9 % (11.0-15.5); WHITE BLOOD COUNT (AUTO) 9.4 K/uL (4.8-10.8)
[2024-05-12] MEDS: HYDROCODONE/ACETAMINOPHEN 5/325 MG TAB PO PRN (07:52)
[2024-05-12] MEDS: KETOROLAC 15MG/ML VIAL (15MG/ML) IV PRN (08:05)
[2024-05-12 11:25] LABS: ALBUMIN 3.3 g/dL (3.5-5.0); BILIRUBIN,TOTAL 1.9 mg/dL (0.2-1.0); CREATININE 0.9 mg/dL (0.5-1.3); POTASSIUM 4.2 mmol/L (3.5-5.1); TOTAL PROTEIN, SERUM 6.3 g/dL (6.0-8.3)
[2024-05-13] VITALS: BP 119/69; PULSE 59; RESP 18
[2024-05-13 03:55] LABS: ALBUMIN 3.2 g/dL (3.5-5.0); BILIRUBIN,TOTAL 1.8 mg/dL (0.2-1.0); CREATININE 0.8 mg/dL (0.5-1.3); TOTAL PROTEIN, SERUM 6.1 g/dL (6.0-8.3)
[2024-05-13 04:00] VITALS: BP 118/73; PULSE 59; RESP 18
[2024-05-13 08:02] VITALS: BP 127/79; PULSE 57; RESP 18
[2024-05-13 08:15] VITALS: O2SAT 98
[2024-05-13] MEDS: LACTULOSE 20 GM/30 ML UDCUP PO SCH (15:32)
[2024-05-13] MEDS ORDERED: DOCU100C33 PO (17:08)
[2024-05-13] MEDS: LACTULOSE 20 GM/30 ML UDCUP ONE (17:41)
== END 2024-05-13 18:08 | disposition home or self-care (01) | DRG 419 ==
LOC: EDH 04:38 → EDHIP 04:39 → UNDOADMIN 11:28 → EDHIP 11:28 → 4BH 05-09 00:30
PROVIDERS: ADMIT Internal Medicine; ATTEND Internal Medicine
PROC: 8E0W4CZ Robotic Assisted Procedure of Trunk Region, Percutaneous Endoscopic Approach (ICD-10-PCS; 2024-05-11)
PROC: 0FT44ZZ Resection of Gallbladder, Percutaneous Endoscopic Approach (ICD-10-PCS; principal; 2024-05-11 14:13)
DX: K80.42 Calculus of bile duct with acute cholecystitis without obstruction (principal); K66.0 Peritoneal adhesions (postprocedural) (postinfection); K59.00 Constipation, unspecified
CPT/HCPCS: 36415; 74176; 74181; 76700; 78226; 80053; 80074; 80305; 81001; 81003; 83036; 83690; 84145; 84443; 84484; 85025; 86140; 93005; A9537; G0378; J0330; J0696; J1100; J1885; J2001; J2175; J2250; J2270; J2405; J2704; J2710; J2795; J3010; J3490; J7030; A4452; A4600; A4649; A4930; C1769; G8980-CI; G8983-CI; J0665; S8037

== ENCOUNTER 2024-08-18 07:13 | Emergency (ER) | payer SELFPAY ==
[~2024-08-18] VITALS: Ht 175.3 cm; Wt 77.1 kg
[~2024-08-18 07:13] MED LIST changes: +DOCU100C33 PO; -FAMO20TA8 PO; -HYDR-4060 PO; -IBUP-1493 PO; -LEVO-70 PO; -MUPI22OI2 TP; -ONDA-104 PO; -ONDA-243 PO
--- NOTE | 2024-08-18 07:23 | ERN ---
General Chief Complaint: Earache Stated Complaint: LEFT EAR PAIN Time Seen by MD: 07:16 Source: patient History of Present Illness Initial Comments Patient is a 34-year-old male coming in to be evaluated for left ear pain. Patient states that the ear pain began one week ago has been progressively getting worse. No other current complaint. No fever no chills. Allergies: Coded Allergies: No Known Allergies (Unverified Allergy, Unknown, 01/26/23) Home Meds Active Scripts Docusate Sodium (Docusate Sodium) 100 Mg Capsule, 100 MG PO DAILY, #30 CAP Prov:DENI LEIGH AGPCNP 05/13/24 Past Medical History Past Medical History: No Pertinent History Medical History Other: GALLSTONES Past Surgical History: Cholecystectomy Surgical History Other: Patient had a appendectomy Family History Family History: Negative Social History Social History: Negative, Lives with family ROS Dictation CONSTITUTIONAL: No chills, no fever, no weakness, no diaphoresis, no malaise. HEAD/FACE: No signs of trauma. EENT: No eye pain, no blurred vision, no tearing, no double vision, ear pain, ear discharge, no nose pain, no nasal congestion, no throat pain, no throat swelling, no mouth pain. RESPIRATORY: No cough, no orthopnea, no SOB, no stridor, no wheezing. CARDIOVASCULAR: No chest pain, no edema, no palpitations, no syncope. GASTROINTESTINAL/ABDOMINAL: No abdominal pain, no constipation, no diarrhea, no nausea, no vomiting. GENITOURINARY: No abnormal discharge, no dysuria, no frequent urination, no hematuria. No complaints of pain in the genitals. MUSCULOSKELETAL: No back pain, no gout, no joint pain, no joint swelling, no muscle pain, no muscle stiffness, no neck pain. INTEGUMENTARY: No change in color, no change in hair/nails, no dryness, no lesion, no lumps, no rash. NEUROLOGICAL/PSYCH: No anxiety, not depressed, no emotional problem, no headache, no numbness, no pre-existing deficit, no history of seizures, no tremors, no weakness. HEMATOLOGIC/LYMPHATIC: Not anemic, no history of blood clots, no apparent bleeding, no bruising, glands not swollen. All Systems Negative, Except as Noted. Physical Exam Physical Exam Dictation VITAL SIGNS: Reviewed. GENERAL APPEARANCE: Alert, oriented x3, no acute distress, obese. HEAD AND FACE: Non-traumatic. EYES: PERRL, pink conjunctivas, eyelid no trauma, anterior chamber clear. EARS: Pinnas intact and no signs of trauma or erythema. Ear canals swelling and discharge. TMs no erythema. NOSE: No discharge, no bleeding. OROPHARYNX: Mouth normal, teeth no caries, tongue pink. Pharynx clear, no erythema. Tonsils no exudates, no abscesses noted. Mucous membrane moist. NECK: Supple, non-tender, no thyromegaly, no masses, no JVD, no bruits. BREAST: Deferred. CHEST: No tenderness, no crepitus, no paradoxical movement, no retractions. LUNGS: Clear, well-ventilated, symmetric, no rales, no wheezing, no rhonchi, no stridor, good breath sounds bilaterally. HEART: Regular rate, regular rhythm, no murmur, no gallops. VASCULAR: No peripheral edema. ABDOMEN: Soft, positive bowel sounds, nondistended, no guarding, nontender, no rebound, no masses no hepatomegaly, no splenomegaly, no Carter's sign, no hernias. RECTAL: Deferred. GENITAL: Deferred. NEUROLOGICAL: Normal speech, gross motor function intact, gross sensory function intact. MUSCULOSKELETAL: Neck nontender, full range of motion, back nontender, full range of motion. EXTREMITIES: Nontender, full range of motion. SKIN: Color pink, dry, no turgor, no rash, no lacerations, no abrasions, no contusions. LYMPHATICS: Deferred. Results Laboratory and Microbiology Labs Reviewed?: Yes MDM MDM: Differential diagnosis: Left otitis externa, otitis media, earache Patient is a 34-year-old male coming in to be evaluated for left ear discomfort. Patient states began one week ago has been getting worse. On physical exam there erythema and swelling to the external canal mild debridement found. Ear week pleased with topical antibiotics. Patient will be discharged with a diagnosis of otitis externa. I advised him appropriate follow up with PCP in 1- 2 days. ED Course Orders Procedure Category Date Status Time Neomy PHA 08/18/24 Complete Sulf/Bacitra/Polymyxin 07:30 Neomycin/Polymyx/Hc PHA 08/18/24 Complete Otic Susp (Cortispor 07:25 Current Medications Medications (Trade) Dose Ordered Sig/Glenn Route PRN Reason Start Time Stop Time Status Last Admin Dose Admin Neomycin/ Polymyxin/ Bacitracin (Triple Antibiotic Ointment) 1 appl ONCE ONCE TP 08/18/24 07:30 08/18/24 07:31 DC Neomycin/ Polymyxin/ Hydrocortisone (Cortisporin Otic) 2 drop ONCE STAT AD 08/18/24 07:25 08/18/24 07:26 DC 08/18/24 07:29 Vital Signs Date Time Temp Pulse Resp B/P (MAP) Pulse Ox O2 Delivery O2 Flow Rate FiO2 08/18/24 07:17 97.9 64 16 122/82 100 Room Air* 0 21 08/18/24 07:14 97.9 54 16 122/82 100 Room Air 0 DX & DISP Disposition: Discharge Departure Impression: Primary Impression: Otitis externa Condition: Stable Additional Instructions: FOLLOW-UP WITH PRIMARY CARE PROVIDER IN 1 TO 2 DAYS. TAKE MEDICATIONS DIRECTED HERE IN THE EMERGENCY ROOM. OKAY TO CONTINUE HOME MEDICATIONS UNLESS OTHERWISE DISCUSSED DURING YOUR VISIT IN THE EMERGENCY ROOM TODAY. RETURN TO YOUR NEAREST EMERGENCY ROOM IF SYMPTOMS WORSEN OR IF THERE IS NO IMPROVEMENT. CALL 911 IF YOU NEED IMMEDIATE ASSISTANCE. TAKE TYLENOL [id number] NEEDED AND IF NO CONTRAINDICATIONS ARE PRESENT. INCREASE ORAL HYDRATION. A WOUND CULTURE OR URINE CULTURE WAS ORDERED HERE IN THE EMERGENCY ROOM DEPARTMENT PLEASE FOLLOW-UP WITH PRIMARY CARE PROVIDER AND ADVISE THEM TO GET REPEAT PORTS FROM OUR FACILITY. IF YOU HAD ANY SABIHA WRAP/SPLINTS THAT WERE APPLIED HERE, PLEASE DO NOT REMOVE THEM UNTIL YOU SEE YOUR PRIMARY CARE OR SPECIALTY. Referrals: Referrals: NONE (PCP) DANIELLA ROSALES MD Time of Disposition: 07:35 AFIA BURGOS MD Aug 18, 2024 07:23
[2024-08-18] MEDS: NEOMYCIN/POLYMYXIN/HC OTIC SUSP 10ML BOTTLE AD STA (07:29)
[2024-08-18] MEDS: NEOMY SULF/BACITRA/POLYMYXIN B 1 EACH PACKET TP ONE (08:08)
[2024-08-18 08:20] VITALS: BP 135/78; PULSE 78; RESP 18; TEMP 98.2; O2SAT 98
== END 2024-08-18 08:21 | disposition home or self-care (01) ==
LOC: EDH 07:13
DX: H60.92 Unspecified otitis externa, left ear (principal); Z90.49 Acquired absence of other specified parts of digestive tract
CPT/HCPCS: 99282